=== PATIENT | female | born 1975 | race Caucasian/White ===

== ENCOUNTER 2018-06-20 19:59 | Emergency (ER) | payer MEDICARE ==
[~2018-06-20] VITALS: Ht 170.2 cm; Wt 85.7 kg
[~2018-06-20 19:59] MED LIST: ATIVAN0.5 MG PO; CARAFATE 1 GM TA1 GM PO; COMPAZINE10 MG PO; METAXALL800 MG PO; NEURONTIN 300300 M1 PO; SEROQUEL 25 MG25 M1 PO; SYNTHROID50 MCG PO
[2018-06-20] MEDS ORDERED: CIPRO (20:18)
[2018-06-20] MEDS ORDERED: MELATONIN (20:19)
[2018-06-20] MEDS ORDERED: [UNRECOGNIZED DRUG - REMARK] (20:19)
[2018-06-20 20:36] LABS: URINE BLOOD 1+ (Negative); URINE CLARITY CLEAR; URINE COLOR YELLOW; URINE GLUCOSE-RANDOM NEGATIVE (Negative); URINE KETONES 1+ (Negative); URINE LEUKOCYTES NEGATIVE (Negative); URINE NITRITE NEGATIVE (Negative); URINE PROTEIN TRACE (Negative); URINE SPECIFIC GRAVITY 1.025 (1.005-1.030); URINE UROBILINOGEN 0.2 E.U./dl (0.2-1.0)
[2018-06-20 20:37] LABS: ICTOTEST (BILI CONFIRMATORY) Negative (Negative); URINE BILIRUBIN 1+ (Negative)
[2018-06-20 20:39] LABS: BACTERIA 1-9 Few /HPF (None Seen); CASTS None Seen /LPF (None Seen); MUCUS >6 Heavy strn/LPF (None Seen); SQUAMOUS >10 Many /LPF (0-3); URINE RBC 3-10 Few /HPF (0-2); URINE WBC 0-5 Rare /HPF (0-5)
[2018-06-20 20:40] LABS: CRYSTALS None Seen /LPF (None Seen)
[2018-06-20 20:46] LABS: ABSOLUTE BASOPHILS 0.1 thou/uL (0.0-0.2); ABSOLUTE EOSINOPHILS 0.1 thou/uL (0.0-0.7); ABSOLUTE LYMPHOCYTES 1.4 thou/uL (0.8-5.3); ABSOLUTE MONOCYTES 0.6 thou/uL (0.0-1.2); ABSOLUTE NEUTROPHILS 7.3 thou/uL (1.6-8.1); BASOPHILS 0.8 %; EOSINOPHILS 0.7 %; HEMATOCRIT 41.1 % (37.0-47.0); HEMOGLOBIN 13.9 gm/dL (12.0-15.0); LYMPHOCYTES 15.2 %; MCH 28.9 pg (26.0-34.0); MCHC 33.8 g/dL (28.0-37.0); MCV 85.5 fL (80.0-100.0); MONOCYTES 6.2 %; NUCLEATED RBCS 0 /100WBC; PLATELET COUNT* 355 thou/uL (150-400); POLYS 77.1 %; RDW-CV 13.3 % (10.5-14.5); WBC 9.5 thou/uL (4.0-11.0)
[2018-06-20 20:53] LABS: CALCIUM 9.3 mg/dL (8.5-10.1); CREATININE 0.9 mg/dL (0.6-1.3); POTASSIUM 3.4 mmol/L (3.5-5.1)
[2018-06-20 20:58] LABS: TOTAL BILIRUBIN 0.7 mg/dL (<0.1-1.0); TOTAL PROTEIN 8.2 g/dL (6.4-8.2)
[2018-06-20 22:35] VITALS: BP 139/82
== END 2018-06-20 22:36 | disposition home or self-care (01) ==
LOC: M.ERS 19:59
PROVIDERS: Physician Assistant
DX: R10.31 Right lower quadrant pain (principal); F41.9 Anxiety disorder, unspecified; F84.0 Autistic disorder; E03.9 Hypothyroidism, unspecified; Z88.2 Allergy status to sulfonamides; Z88.6 Allergy status to analgesic agent